=== PATIENT | male | born 1985 | race American Indian/Alaskan Native ===

== ENCOUNTER 2017-05-11 11:44 | Observation (INO) | payer MEDICAID, OTHER ==
[2017-05-11 11:53] VITALS: BMI 21.3
--- NOTE | 2017-05-11 12:07 | ED PDOC ---
HPI: Psych/Substance Abuse Time Seen by Provider: 05/11/17 12:00 Chief Complaint (Nursing): Palpitations Chief Complaint (Provider): Palpitations History Per: Patient History/Exam Limitations: no limitations Onset/Duration Of Symptoms: Hrs Current Symptoms Are (Timing): Still Present Additional Complaint(s): 31 y/o male presents to the emergency department with a complaint of palpitations and shortness of breath since this morning. Admits to doing ecstasy and drinking alcohol last night. Denies chest pain or dizziness. Past Medical History Reviewed: Historical Data, Nursing Documentation, Vital Signs Vital Signs: Last Vital Signs Temp 98.7 F 05/11/17 11:46 Pulse 71 05/11/17 11:46 Resp BP 143/92 H 05/11/17 11:46 Pulse Ox 100 05/11/17 11:46 - Medical History PMH: No Chronic Diseases - Surgical History Surgical History: No Surg Hx - Family History Family History: States: Unknown Family Hx - Social History Alcohol: Social Drugs: Other - Allergies Allergies/Adverse Reactions: Allergies Allergy/AdvReac Type Severity Reaction Status Date / Time No Known Allergies Allergy Verified 09/22/15 15:22 Review of Systems ROS Statement: Except As Marked, All Systems Reviewed And Found Negative Cardiovascular: Positive for: Palpitations. Negative for: Chest Pain Respiratory: Positive for: Shortness of Breath Neurological: Negative for: Dizziness Physical Exam - Reviewed Nursing Documentation Reviewed: Yes Vital Signs Reviewed: Yes - Physical Exam Appears: Positive for: Non-toxic, No Acute Distress Head Exam: Positive for: ATRAUMATIC, NORMAL INSPECTION, NORMOCEPHALIC Skin: Positive for: Normal Color, Warm, Dry Cardiovascular/Chest: Positive for: Regular Rate, Rhythm. Negative for: Murmur Respiratory: Positive for: Normal Breath Sounds (Lungs clear b/l). Negative for : Accessory Muscle Use, Respiratory Distress Gastrointestinal/Abdominal: Positive for: Normal Exam, Soft. Negative for: Tenderness Extremity: Positive for: Normal ROM (Full) Neurologic/Psych: Positive for: Oriented, Mood/Affect (Sleepy but arousable). Negative for: Motor/Sensory Deficits (Focal) - Laboratory Results Result Diagrams: 05/11/17 12:10 05/11/17 12:10 - ECG O2 Sat by Pulse Oximetry: 100 (RA) Pulse Ox Interpretation: Normal - Progress Re-evaluation Time: 14:36 Condition: Improved (Awake responsive no focal neuro deficits) Medical Decision Making Medical Decision Making: Time: 12:00 Initial impression: Palpitations in setting of known ETOH and pill ingestion Initial plan: --EKG --Alcohol Serum --CMP --Drug Screen, Urine --Troponin I --CBC w/ diff --Reevaluation Scribe Attestation: Documented by Luciana Marcus, acting as a scribe for Manpreet Gudino MD. Provider Scribe Attestation: All medical record entries made by the Scribe were at my direction and personally dictated by me. I have reviewed the chart and agree that the record accurately reflects my personal performance of the history, physical exam, medical decision making, and the department course for this patient. I have also personally directed, reviewed, and agree with the discharge instructions and disposition. ED OBSERVATION Discharge: Yes Date of observation admission: 05/11/17 Time of observation admission: 12:04 - Observation admission statement Patient is being placed in observation because:: ETOH intoxication and ingestion of ecstasy. - Goals of Observation Goals of observation are:: Clinical sobriety. - Progress Note Progress Note: 05/11/17 13:34 --Patient resting comfortably, pending work-up results, and reassessment. Disposition - Clinical Impression Clinical Impression: Marijuana use - Patient ED Disposition Is Patient to be Admitted: No Counseled Patient/Family Regarding: Studies Performed, Diagnosis, Need For Followup - Disposition Disposition: Routine/Home Disposition Time: 14:37 Condition: STABLE
[2017-05-11 12:23] LABS: BASO # 0.1 K/uL (0.0-0.2); BASO % 1.3 % (0.0-2.0); EOS % 0.5 % (0.0-4.0); HEMATOCRIT 44.1 % (35.0-51.0); LYMPH # 1.1 K/uL (1.0-4.3); LYMPH % 18.7 % (20.0-40.0); MEAN CELL VOLUME 80.4 fl (80.0-94.0); MEAN CORPUSCULAR HEMOGLOBIN 27.1 pg (27.0-31.0); MEAN CORPUSCULAR HGB CONC 33.7 g/dL (33.0-37.0); MEAN PLATELET VOLUME 8.6 fl (7.2-11.7); MONO # 0.5 K/uL (0.0-0.8); MONO % 8.7 % (0.0-10.0); NEUT % 70.8 % (50.0-75.0); NRBC % 0.1 % (0.0-0.0); RED CELL DISTRIBUTION WIDTH 15.3 % (11.5-14.5); WHITE BLOOD COUNT 5.7 K/uL (4.8-10.8)
[2017-05-11 12:32] LABS: ALB/GLOB RATIO 1.2 (1.0-2.1); ALCOHOL SERUM < 10 mg/dl (0-10); ALKALINE PHOSPHATASE 89 U/L (38-126); ALT/SGPT 22 U/L (21-72); AST/SGOT 24 U/L (17-59); BILIRUBIN,TOTAL 0.7 mg/dl (0.2-1.3); BLOOD UREA NITROGEN 12 mg/dl (9-20); CALCIUM 9.7 mg/dL (8.4-10.2); CARBON DIOXIDE 24 mmol/L (22-30); CHLORIDE 105 mmol/L (98-107); GFR AFRICAN-AMERICAN > 60; GLUCOSE,RANDOM 95 mg/dL (75-110); POTASSIUM 4.1 MMOL/L (3.6-5.0); SODIUM 139 mmol/l (132-148); TOTAL PROTEIN 7.5 G/DL (6.3-8.2)
[2017-05-11 14:50] VITALS: BP 128/78; PULSE 78; RESP 19; TEMP 97.6; O2SAT 98
--- NOTE | 2017-05-13 11:08 | CARD ---
APPROVED REPORT EKG Measurement Heart [id number] <Conclusion> Normal sinus rhythm Normal ECG
== END 2017-05-11 14:52 | disposition home or self-care (01) ==
LOC: H.ER 11:44 → H.EROBSV 12:04
PROVIDERS: ADMIT Emergency Medicine; ATTEND Emergency Medicine
DX: F12.90 Cannabis use, unspecified, uncomplicated (principal); R00.2 Palpitations
CPT/HCPCS: 80053; 84484; 85025; 93005; 99284; G0378; G0480